=== PATIENT | male | born 1950 | race Caucasian/White ===

== ENCOUNTER 2017-05-15 20:43 | Emergency (ER) | payer OTHER ==
--- NOTE | 2017-05-15 21:42 | EDM.PDOC ---
ED HPI GENERAL MEDICAL PROBLEM - General Chief Complaint: Respiratory Problem Stated Complaint: COUGH WEAKNESS Time Seen by Provider: 05/15/17 21:25 Source of Information: Reports: Patient, Family, Old Records, RN History Limitations: Reports: No Limitations - History of Present Illness INITIAL COMMENTS - FREE TEXT/NARRATIVE: 66 yo male life long smoker, [facility] presents with cough that has been getting more progressively productive. Occasional SOB. No fever. Has had some blood in the emesis at times. Has inhalers that help. Goes to the [facility] and it is hard to get in there. Onset: Gradual Onset Date: 04/17/17 Duration: Week(s):, Getting Worse Location: Reports: Chest Quality: Reports: Other (no pain) Severity: Moderate Improves with: Reports: Rest Worsens with: Reports: Movement (exertion) Context: Reports: Other (life long smoker) Associated Symptoms: Reports: Cough, Shortness of Breath (mild). Denies: Fever/ Chills Treatments [employer] UNDERWRITER: Reports: Other (see below) (none) back Pain Score (Numeric/FACES): 5 - Related Data Allergies Allergy/AdvReac Type Severity Reaction Status Date / Time isosorbide mononitrate Allergy Stomach Verified 05/15/17 21:01 [From Imdur] Ache Home Meds: Home Meds Amiodarone HCl [Pacerone] 1 tab PO DAILY 07/21/15 [History] Aspirin 1 tab PO DAILY 07/21/15 [History] Clopidogrel Bisulfate [Clopidogrel] 1 tab PO BEDTIME 07/21/15 [History] Fish Oil/[place]-3 Fatty Acids [Fish Oil 1,000 MG] 1 tab PO DAILY 07/21/15 [ History] Furosemide 20 mg PO DAILY 07/21/15 [History] Losartan [Cozaar] 1 tab PO BEDTIME 07/21/15 [History] Metoprolol Succinate 100 mg PO BID 07/21/15 [History] Nitroglycerin [Nitrostat] 1 tab SL ASDIRECTED 07/21/15 [History] Spironolactone [Aldactone] 1 tab PO DAILY 07/21/15 [History] atorvaSTATin Calcium [Atorvastatin Calcium] 80 mg PO BEDTIME 07/21/15 [History] Albuterol [IJP: Ventolin HFA] 2 puff INH Q4H PRN 05/15/17 [History] Azithromycin [IJP: Azithromycin] 250 mg PO DAILY #6 tab 05/15/17 [Rx] guaiFENesin [Siltussin SA] 10 ml PO Q6H PRN 05/15/17 [History] Past Medical History HEENT History: Reports: Hard of Hearing Cardiovascular History: Reports: Aneurysm, Angina, Arrhythmia, Automatic Implantable Cardioverter Defibrillators, Bypass, CAD, Heart Failure, High Cholesterol, Hypertension, [place], Pacemaker, Prior Cardiac Arrest, SOB on Exertion , Stents Gastrointestinal History: Reports: Colon Polyp Musculoskeletal History: Reports: Amputation, Back Pain, Chronic, Fracture Hematologic History: Reports: Blood Transfusion(s) Oncologic (Cancer) History: Reports: Other (See Below) Other Oncologic History: skin Cancer - Infectious Disease History Infectious Disease History: Reports: Chicken Pox - Past Surgical History Cardiovascular Surgical History: Reports: AAA Repair, Aneurysm, Coronary Artery Bypass, Coronary Artery Stent, Pacer, Vascular Surgery GI Surgical History: Reports: Colonoscopy, Hernia Repair/Other Musculoskeletal Surgical History: Reports: Amputation, Shoulder Surgery Social & Family History - Tobacco Use Smoking Status *Q: Current Every Day Smoker Years of Tobacco use: 52 Packs/Tins Daily: 0.5 - Caffeine Use Caffeine Use: Reports: Coffee - Recreational Drug Use Recreational Drug Use: No ED ROS GENERAL - Review of Systems Review Of Systems: See Below Constitutional: Reports: No Symptoms HEENT: Reports: No Symptoms Respiratory: Reports: Shortness of Breath (mild), Wheezing (chronic), Cough, Sputum, Hemoptysis Cardiovascular: Reports: No Symptoms GI/Abdominal: Reports: No Symptoms : Reports: No Symptoms Skin: Reports: No Symptoms Neurological: Reports: No Symptoms ED EXAM, GENERAL - Physical Exam Exam: See Below Exam Limited By: No Limitations General Appearance: Alert, WD/WN, No Apparent Distress Eye Exam: Bilateral Eye: Normal Inspection Ears: Normal External Exam, Normal Canal, Hearing Grossly Normal, Normal TMs Ear Exam: Bilateral Ear: Auricle Normal, Canal Normal, TM normal Nose: Normal Inspection, Normal Mucosa, No Blood Throat/Mouth: Normal Inspection, Normal Lips, Normal Oropharynx, Normal Voice, No Airway Compromise Head: Atraumatic, Normocephalic Neck: Normal Inspection, Supple, Non-Tender Respiratory/Chest: No Respiratory Distress, No Accessory Muscle Use, Rhonchi ( scattered), Wheezing (faint). No: Pleural Rub, Accessory Muscle Use, Retractions Cardiovascular: Regular Rate, Rhythm, No Edema GI/Abdominal: Normal Bowel Sounds, Soft, Non-Tender, No Distention Back Exam: Normal Inspection. No: CVA Tenderness (R), CVA Tenderness (L) Extremities: Normal Inspection, Normal Range of Motion, Non-Tender, No Pedal Edema Neurological: Alert, Oriented, CN II-XII Intact, Normal Cognition, No Motor/ Sensory Deficits Psychiatric: Normal Affect, Normal Mood Skin Exam: Warm, Dry, Intact, Normal Color, No Rash Lymphatic: No Adenopathy Course - Vital Signs Last Recorded V/S: Last Vital Signs Temp 36.9 C 05/15/17 21:07 Pulse 60 05/15/17 21:45 Resp 15 05/15/17 22:13 BP 132/68 05/15/17 22:13 Pulse Ox 95 05/15/17 22:13 - Orders/Labs/Meds Orders: Active Orders 24 hr Category Date Time Status Chest 2V [CR] Stat Exams 05/15/17 21:41 Taken CULTURE RESPIRATORY + SMEAR [RM] Stat Lab 05/15/17 21:54 Results Labs: Laboratory Tests 05/15/17 05/15/17 Range/Units 21:35 21:35 WBC 11.0 (4.5-11.0) K/uL RBC 4.92 (4.30-5.90) M/uL Hgb 15.3 H (12.0-15.0) g/dL Hct 44.7 (40.0-54.0) % MCV 91 (80-98) fL MCH 31 (27-31) pg MCHC 34 (32-36) % Plt Count 190 (150-400) K/uL Sodium 137 L (140-148) mmol/L Potassium 3.9 (3.6-5.2) mmol/L Chloride 101 (100-108) mmol/L Carbon Dioxide 24 (21-32) mmol/L Anion Gap 15.9 H (5.0-14.0) mmol/L BUN 25 H (7-18) mg/dL Creatinine 1.1 (0.8-1.3) mg/dL Est Cr Clr Drug Dosing 63.05 mL/min Estimated GFR (MDRD) > 60 (>60) Glucose 121 H (74-106) mg/dL Calcium 9.4 (8.5-10.1) mg/dL Troponin I < 0.017 (0.000-0.056) ng/mL Meds: Medications Discontinued Medications Generic Name Dose Route Start Last Admin Trade Name Anton PRN Reason Stop Dose Admin Azithromycin 500 mg 05/15/17 22:20 05/15/17 22:25 Zithromax PO 05/15/17 22:21 500 mg ONETIME ONE Administration - Radiology Interpretation Free Text/Narrative:: CXR-? posterior infiltrate, circular lesion(? cavitary R mid lung field) Departure - Departure Time of Disposition: 22:27 Disposition: Home, Self-Care 01 Condition: Fair Clinical Impression: Bronchitis - Discharge Information Referrals: Debby Lutz TELEPHONE ORDER SUPERVISOR [Primary Care Provider] - Forms: ED Department Discharge - My Orders Last 24 Hours: My Active Orders 05/15/17 21:41 Chest 2V [CR] Stat 05/15/17 21:54 CULTURE RESPIRATORY + SMEAR [RM] Stat - Assessment/Plan Last 24 Hours: My Active Orders 05/15/17 21:41 Chest 2V [CR] Stat 05/15/17 21:54 CULTURE RESPIRATORY + SMEAR [RM] Stat
[2017-05-15 22:14] VITALS: BP 132/68
[2017-05-15] MEDS ORDERED: Azithromycin 250 MG Tab PO ONE (22:20)
--- NOTE | 2017-05-17 08:53 | CR ---
Chest 2V HISTORY: Productive cough and occasional bloody sputum. COMPARISON: None FINDINGS: Median sternotomy. Left-sided pacemaker. There is a area of mixed density measuring 2.9 cm with central lucency which could represent cavitating lesion infectious or neoplastic in the right up per lobe. The left lung is clear partial obscured left upper lobe from the patient's pacemaker. Mild cardiomegaly. No effusions. Impression: Ill-defined density measuring 2.9 cm right upper lobe with central lucency. Cavitating lesion not exc luded this could be infectious or neoplastic. Would recommend CT scan of the chest after IV contrast for better characterization.
== END 2017-05-15 22:41 | disposition home or self-care (01) ==
LOC: JP.ED 20:43
DX: J40 Bronchitis, not specified as acute or chronic (principal); I11.0 Hypertensive heart disease with heart failure; I50.9 Heart failure, unspecified; F17.210 Nicotine dependence, cigarettes, uncomplicated; I25.10 Atherosclerotic heart disease of native coronary artery without angina pectoris; Z95.1 Presence of aortocoronary bypass graft; Z79.82 Long term (current) use of aspirin; Z79.899 Other long term (current) drug therapy; Z88.8 Allergy status to other drugs, medicaments and biological substances
CPT/HCPCS: 36415; 71020; 80048; 84484; 85027; 87070; 87205; 99284; A9270; 99283

== ENCOUNTER 2020-04-14 05:20 | Emergency (ER) | payer OTHER ==
[2020-04-14 05:47] VITALS: PULSE 60
--- NOTE | 2020-04-14 06:52 | EDM.PDOC ---
<OfficerPasquale - Last Filed: 04/14/20 06:46> ED HPI GENERAL MEDICAL PROBLEM - General Chief Complaint: General Stated Complaint: MEDICAL VIA [facility] Time Seen by Provider: 04/14/20 06:37 Source of Information: Reports: Patient, Family, RN Notes Reviewed History Limitations: Reports: No Limitations - History of Present Illness INITIAL COMMENTS - FREE TEXT/NARRATIVE: 69-year-old gentleman presents emergency department a complaint of weakness, he has a known history of lung cancer recently diagnosed a couple months ago he has not started chemotherapy that is due to begin next week. He also has a known history of congestive heart failure with an ejection fraction around 20%. He has had recent adjustment of medications to try and lower his blood pressure because of the severity of his congestive heart failure carvedilol was the last medication that was added. He states that he notices he gets dizzy whenever he changes positions and he feels very weak to the point where he cannot stand up. This has progressed over the last week. No fevers no nausea vomiting no shortness of breath. Does have an extensive history of coronary artery disease as well as myocardial infarction. - Related Data Allergies Allergy/AdvReac Type Severity Reaction Status Date / Time isosorbide mononitrate Allergy Stomach Verified 04/14/20 05:32 [From Imdur] Ache Home Meds: Home Meds Amiodarone HCl [Pacerone] 100 mg PO DAILY 07/21/15 [History] Aspirin 81 mg PO DAILY 07/21/15 [History] Clopidogrel Bisulfate [Clopidogrel] 75 mg PO BEDTIME 07/21/15 [History] Fish Oil/[place]-3 Fatty Acids [Fish Oil 1,000 MG] 1 tab PO DAILY 07/21/15 [History] Furosemide 20 mg PO DAILY 07/21/15 [History] Losartan [Cozaar] 50 mg PO BEDTIME 07/21/15 [History] Metoprolol Succinate 100 mg PO BID 07/21/15 [History] Nitroglycerin [Nitrostat] 1 tab SL ASDIRECTED 07/21/15 [History] Spironolactone [Aldactone] 1 tab PO DAILY 07/21/15 [History] atorvaSTATin Calcium [Atorvastatin Calcium] 80 mg PO BEDTIME 07/21/15 [History] Albuterol [IJP: Ventolin HFA] 2 puff INH Q6H PRN 05/15/17 [History] guaiFENesin [Siltussin SA] 10 ml PO Q6H PRN 05/15/17 [History] Pantoprazole [ProTONIX] 40 mg PO DAILY 04/14/20 [History] Sod Chlor,Bicarb/Squeez Bottle [Sinus Rinse Starter Kit] 1 pack LUIS ASDIRECTED 04/14/20 [History] Spironolactone [Aldactone] 25 mg PO DAILY 04/14/20 [History] carvediloL [Carvedilol] 25 mg PO BID 04/14/20 [History] Past Medical History HEENT History: Reports: Hard of Hearing Cardiovascular History: Reports: Aneurysm, Angina, Arrhythmia, Automatic Implantable Cardioverter Defibrillators, Bypass, CAD, Heart Failure, High C holesterol, Hypertension, [place], Pacemaker, Prior Cardiac Arrest, SOB on Exertion, Stents Respiratory History: Reports: Other (See Below) Other Respiratory History: lung cancer Gastrointestinal History: Reports: Colon Polyp Musculoskeletal History: Reports: Amputation, Back Pain, Chronic, Fracture Hematologic History: Reports: Blood Transfusion(s) Oncologic (Cancer) History: Reports: Lung, Other (See Below) Other Oncologic History: skin Cancer - Infectious Disease History Infectious Disease History: Reports: Chicken Pox - Past Surgical History Cardiovascular Surgical History: Reports: AAA Repair, Aneurysm, Coronary Artery Bypass, Coronary Artery Stent, Pacer, Vascular Surgery Respiratory Surgical History: Reports: None GI Surgical History: Reports: Colonoscopy, Hernia Repair/Other Musculoskeletal Surgical History: Reports: Amputation, Shoulder Surgery Social & Family History - Tobacco Use Tobacco Use Status *Q: Current Every Day Tobacco User Years of Tobacco use: 55 Packs/Tins Daily: 0.4 - Caffeine Use Caffeine Use: Reports: Coffee - Recreational Drug Use Recreational Drug Use: No ED ROS GENERAL - Review of Systems Review Of Systems: See Below Constitutional: Reports: Weakness HEENT: Reports: No Symptoms Respiratory: Reports: No Symptoms Cardiovascular: Reports: No Symptoms GI/Abdominal: Reports: No Symptoms : Reports: No Symptoms Neurological: Reports: Dizziness ED EXAM, GENERAL - Physical Exam Exam: See Below Exam Limited By: No Limitations General Appearance: Alert, WD/WN, No Apparent Distress Neck: Normal Inspection, Supple, Non-Tender, Full Range of Motion Respiratory/Chest: No Respiratory Distress, Lungs Clear, Normal Breath Sounds, No Accessory Muscle Use, Chest Non-Tender Cardiovascular: Regular Rate, Rhythm, No Murmur GI/Abdominal: Soft, Non-Tender Departure - Departure Disposition: Home, Self-Care 01 Clinical Impression: Syncope, near, Dizziness - Discharge Information Instructions: Dizziness Referrals: PCP,None [Primary Care Provider] - Forms: ED Department Discharge Care Plan Goals: You are likely having some side effects to your medications but they should improve over time. I would recommend you continue your medications and recheck with your regular doctor if not improving satisfactorily. Sepsis Event Note (ED) - Evaluation Sepsis Screening Result: No Definite Risk <Shay Tim - Last Filed: 04/14/20 08:46> Course - Vital Signs Last Recorded V/S: Last Vital Signs Temp 97.4 F 04/14/20 05:35 Pulse 60 04/14/20 07:11 Resp 16 04/14/20 07:11 BP 123/64 04/14/20 07:11 Pulse Ox 95 04/14/20 07:11 - Orders/Labs/Meds Labs: Laboratory Tests 04/14/20 04/14/20 Range/Units 06:56 06:56 WBC 8.8 (4.5-11.0) K/uL RBC 4.31 (4.30-5.90) M/uL Hgb 12.9 D (12.0-15.0) g/dL Hct 39.3 L (40.0-54.0) % MCV 91 (80-98) fL MCH 30 (27-31) pg MCHC 33 (32-36) % Plt Count 175 (150-400) K/uL Neut % (Auto) 66 (36-66) % Lymph % (Auto) 19 L (24-44) % Curry % (Auto) 10 H (2-6) % Eos % (Auto) 5 H (2-4) % Baso % (Auto) 0 (0-1) % Sodium 135 L (140-148) mmol/L Potassium 3.9 (3.6-5.2) mmol/L Chloride 102 (100-108) mmol/L Carbon Dioxide 23 (21-32) mmol/L Anion Gap 13.9 (5.0-14.0) mmol/L BUN 28 H (7-18) mg/dL Creatinine 1.5 H (0.8-1.3) mg/dL Est Cr Clr Drug Dosing 41.35 mL/min Estimated GFR (MDRD) 46 L (>60) Glucose 108 H (74-106) mg/dL Calcium 8.8 (8.5-10.1) mg/dL Total Bilirubin 0.3 (0.2-1.0) mg/dL AST 22 (15-37) U/L ALT 31 (12-78) U/L Alkaline Phosphatase 66 (46-116) U/L Troponin I < 0.017 (0.000-0.056) ng/mL Total Protein 7.9 (6.4-8.2) g/dL Albumin 3.2 L (3.4-5.0) g/dL Globulin 4.7 H (2.3-3.5) g/dL Albumin/Globulin Ratio 0.7 L (1.2-2.2) Meds: Medications Discontinued Medications Generic Name Dose Route Start Last Admin Trade Name Freq PRN Reason Stop Dose Admin Sodium Chloride 1,000 mls @ 500 mls/hr 04/14/20 07:00 04/14/20 07:10 Normal Saline IV 500 mls/hr ASDIRECTED [facility] Administration - Re-Assessments/Exams Free Text/Narrative Re-Assessment/Exam: 04/14/20 07:59 Patient care turned over from Officer pending a fluid bolus. He rested quietly during the fluid placement and stable. He will be discharged and can follow-up with primary care as scheduled. The new prescription of carvedilol is likely contributing to his lightheadedness and dizziness but I think he should persist in taking the medication as this should improve. Departure - Departure Time of Disposition: 08:26 Sepsis Event Note (ED) - Focused Exam Vital Signs: Vital Signs Temp Pulse Resp BP Pulse Ox 04/14/20 07:11 60 16 123/64 95 04/14/20 05:35 97.4 F 60 16 110/75 95
[2020-04-14] MEDS ORDERED: Sodium Chloride 0.9% 1,000 ML IV SCH (07:00)
[2020-04-14 07:12] VITALS: BP 123/64
== END 2020-04-14 08:32 | disposition home or self-care (01) ==
LOC: JP.ED 05:20
DX: R55 Syncope and collapse (principal); R42 Dizziness and giddiness; I25.10 Atherosclerotic heart disease of native coronary artery without angina pectoris; I11.0 Hypertensive heart disease with heart failure; I50.9 Heart failure, unspecified; E78.00 Pure hypercholesterolemia, unspecified; I25.2 Old myocardial infarction; F17.210 Nicotine dependence, cigarettes, uncomplicated; Z95.5 Presence of coronary angioplasty implant and graft; Z79.82 Long term (current) use of aspirin; Z79.02 Long term (current) use of antithrombotics/antiplatelets; Z79.899 Other long term (current) drug therapy; Z88.8 Allergy status to other drugs, medicaments and biological substances
CPT/HCPCS: 36415; 80053; 84484; 85025; 99285; J7030; 99283

== ENCOUNTER 2020-05-04 01:34 | Emergency (ER) | payer OTHER ==
[2020-05-04] MEDS ORDERED: Albuterol/Ipratropium 4 GM Inhalation Spray INH STA (02:29)
[2020-05-04] MEDS ORDERED: Ondansetron 4 MG/2 ML SDV IVPUSH ONE (02:29)
[2020-05-04] MEDS ORDERED: Sodium Chloride 0.9% 10 ML Syringe FLUSH PRN (02:29)
[2020-05-04] MEDS ORDERED: Sodium Chloride 0.9% 1,000 ML IV SCH (02:30)
--- NOTE | 2020-05-04 02:33 | EDM.PDOC ---
ED HPI GENERAL MEDICAL PROBLEM - General Chief Complaint: Respiratory Problem Stated Complaint: THROWING UP,SOB Time Seen by Provider: 05/04/20 02:11 Source of Information: Reports: Patient, Family, RN Notes Reviewed History Limitations: Reports: No Limitations - History of Present Illness INITIAL COMMENTS - FREE TEXT/NARRATIVE: 69-year-old gentleman presents emergency department a complaint of shortness of breath with nausea and vomiting, he has a known history of stage IV non-small cell lung CA recent diagnosis started chemotherapy end of March. He states over the last 24 hours he is gotten progressively more short of breath and then today he started nausea and vomiting. States he has not had any known Covid exposures tries to stay home no fevers does have body aches and feels weak Upper Shoulder Pain Score (Numeric/FACES): 3 - Related Data Allergies Allergy/AdvReac Type Severity Reaction Status Date / Time bee venom protein (honey bee) Allergy Swelling Verified 05/04/20 02:17 isosorbide mononitrate Allergy Stomach Verified 05/04/20 01:49 [From Imdur] Ache rosuvastatin Allergy Cannot Verified 05/04/20 02:17 Remember Home Meds: Home Meds Amiodarone HCl [Pacerone] 200 mg PO DAILY 07/21/15 [History] Aspirin 81 mg PO DAILY 07/21/15 [History] Clopidogrel Bisulfate [Clopidogrel] 75 mg PO BEDTIME 07/21/15 [History] Fish Oil/[place]-3 Fatty Acids [Fish Oil 1,000 MG] 1 tab PO DAILY 07/21/15 [History] Furosemide 20 mg PO DAILY 07/21/15 [History] Losartan [Cozaar] 50 mg PO DAILY 07/21/15 [History] Metoprolol Succinate 100 mg PO BID 07/21/15 [History] Nitroglycerin [Nitrostat] 1 tab SL ASDIRECTED 07/21/15 [History] atorvaSTATin Calcium [Atorvastatin Calcium] 80 mg PO BEDTIME 07/21/15 [History] Albuterol [IJP: Ventolin HFA] 2 puff INH Q6H PRN 05/15/17 [History] guaiFENesin [Siltussin SA] 5 ml PO Q6H PRN 05/15/17 [History] Spironolactone [Aldactone] 25 mg PO DAILY 04/14/20 [History] carvediloL [Carvedilol] 12.5 mg PO BID 04/14/20 [History] Cetirizine [ZyrTEC] 10 mg PO BEDTIME 05/04/20 [History] Omeprazole 20 mg PO BID 05/04/20 [History] Past Medical History HEENT History: Reports: Hard of Hearing, Impaired Vision Cardiovascular History: Reports: Aneurysm, Angina, Arrhythmia, Automatic Implantable Cardioverter Defibrillators, Bypass, CAD, Heart Failure, High Cholesterol, Hypertension, CO, Pacemaker, Prior Cardiac Arrest, SOB on Exertion, Stents Respiratory History: Reports: Other (See Below) Other Respiratory History: lung cancer Gastrointestinal History: Reports: Colon Polyp Musculoskeletal History: Reports: Amputation, Back Pain, Chronic, Fracture Hematologic History: Reports: Blood Transfusion(s) Oncologic (Cancer) History: Reports: Lung, Other (See Below) Other Oncologic History: skin Cancer - Infectious Disease History Infectious Disease History: Reports: Chicken Pox - Past Surgical History Cardiovascular Surgical History: Reports: AAA Repair, Aneurysm, Coronary Artery Bypass, Coronary Artery Stent, Pacer, Vascular Surgery Respiratory Surgical History: Reports: None GI Surgical History: Reports: Colonoscopy, Hernia Repair/Other Musculoskeletal Surgical History: Reports: Amputation, Shoulder Surgery Social & Family History - Tobacco Use Tobacco Use Status *Q: Current Every Day Tobacco User Years of Tobacco use: 50 Packs/Tins Daily: 0.5 Used Tobacco, but Quit: No Second Hand Smoke Exposure: Yes - Caffeine Use Caffeine Use: Reports: Coffee, Tea - Recreational Drug Use Recreational Drug Use: No ED ROS GENERAL - Review of Systems Review Of Systems: See Below Constitutional: Reports: Weakness. Denies: Fever, Chills HEENT: Reports: No Symptoms Respiratory: Reports: Shortness of Breath, Wheezing, Cough Cardiovascular: Reports: Dyspnea on Exertion GI/Abdominal: Reports: Mucous in Stool, Nausea, Vomiting. Denies: Abdominal Pain Musculoskeletal: Reports: Muscle Pain ED EXAM, GENERAL - Physical Exam Exam: See Below Exam Limited By: No Limitations General Appearance: Alert, WD/WN, No Apparent Distress Throat/Mouth: Normal Inspection, Normal Lips, Normal Teeth, Normal Gums, Normal Oropharynx, Normal Voice, No Airway Compromise Neck: Normal Inspection, Supple, Non-Tender, Full Range of Motion Respiratory/Chest: No Respiratory Distress, No Accessory Muscle Use, Decreased Breath Sounds, Wheezing (Expiratory phase) Cardiovascular: Regular Rate, Rhythm, No Murmur GI/Abdominal: Soft, Non-Tender Back Exam: Normal Inspection, Full Range of Motion. No: CVA Tenderness (R), CVA Tenderness (L) Extremities: No Pedal Edema Course - Vital Signs Last Recorded V/S: Last Vital Signs Temp 96.8 F L 05/04/20 03:18 Pulse 65 05/04/20 03:18 Resp 16 05/04/20 03:18 BP 94/46 L 05/04/20 03:18 Pulse Ox 91 L 05/04/20 03:18 - Orders/Labs/Meds Orders: Active Orders 24 hr Category Date Time Status Peripheral IV Care [RC] . DIRECTED Care 05/04/20 02:29 Active RT Post Treatment Assessment [RC] Click to Edit Care 05/04/20 02:30 Active Chest 1V Frontal [CR] Stat Exams 05/04/20 02:20 Taken Sodium Chloride 0.9% [Normal Saline] 1,000 ml Med 05/04/20 02:30 Active IV ASDIRECTED Sodium Chloride 0.9% [Saline Flush] Med 05/04/20 02:29 Active 10 ml FLUSH ASDIRECTED PRN Isolation [COMM] Routine Oth 05/04/20 02:20 Ordered Peripheral IV Insertion Adult [OM.PC] Urgent Oth 05/04/20 02:29 Ordered Medication Orders Sodium Chloride (Normal Saline) 1,000 mls @ 999 mls/hr IV ASDIRECTED MIRIAM Last Admin: 05/04/20 03:12 Dose: 500 mls/hr Documented by: MILLER Sodium Chloride (Saline Flush) 10 ml FLUSH ASDIRECTED PRN PRN Reason: Keep Vein Open Labs: Laboratory Tests 05/04/20 05/04/20 05/04/20 Range/Units 02:30 02:30 02:30 WBC 7.9 (4.5-11.0) K/uL RBC 4.48 (4.30-5.90) M/uL Hgb 13.5 (12.0-15.0) g/dL Hct 40.2 (40.0-54.0) % MCV 90 (80-98) fL MCH 30 (27-31) pg MCHC 34 (32-36) % Plt Count 177 (150-400) K/uL Neut % (Auto) 68 H (36-66) % Lymph % (Auto) 15 L (24-44) % Lucas % (Auto) 13 H (2-6) % Eos % (Auto) 4 (2-4) % Baso % (Auto) 1 (0-1) % Sodium 129 L (140-148) mmol/L Potassium 4.2 (3.6-5.2) mmol/L Chloride 96 L (100-108) mmol/L Carbon Dioxide 19 L (21-32) mmol/L Anion Gap 18.2 H (5.0-14.0) mmol/L BUN 35 H (7-18) mg/dL Creatinine 1.9 H (0.8-1.3) mg/dL Est Cr Clr Drug Dosing 33.82 mL/min Estimated GFR (MDRD) 35 L (>60) Glucose 116 H (74-106) mg/dL Lactic Acid 1.5 (0.4-2.0) mmol/L Calcium 8.6 (8.5-10.1) mg/dL Total Bilirubin 0.5 D (0.2-1.0) mg/dL Direct Bilirubin 0.20 (0.0-0.2) mg/dL Indirect Bilirubin 0.30 AST 44 H D (15-37) U/L ALT 41 (12-78) U/L Alkaline Phosphatase 74 (46-116) U/L Troponin I (0.000-0.056) ng/mL C-Reactive Protein 0.87 H (0.0-0.3) mg/dL Total Protein 8.3 H (6.4-8.2) g/dL Albumin 3.1 L (3.4-5.0) g/dL Globulin 5.2 H (2.3-3.5) g/dL Albumin/Globulin Ratio 0.6 L (1.2-2.2) Procalcitonin ng/mL SARS CoV-2 RNA Rapid VIVIEN 05/04/20 05/04/20 05/04/20 Range/Units 02:30 02:30 02:31 WBC (4.5-11.0) K/uL RBC (4.30-5.90) M/uL Hgb (12.0-15.0) g/dL Hct (40.0-54.0) % MCV (80-98) fL MCH (27-31) pg MCHC (32-36) % Plt Count (150-400) K/uL Neut % (Auto) (36-66) % Lymph % (Auto) (24-44) % Lucas % (Auto) (2-6) % Eos % (Auto) (2-4) % Baso % (Auto) (0-1) % Sodium (140-148) mmol/L Potassium (3.6-5.2) mmol/L Chloride (100-108) mmol/L Carbon Dioxide (21-32) mmol/L Anion Gap (5.0-14.0) mmol/L BUN (7-18) mg/dL Creatinine (0.8-1.3) mg/dL Est Cr Clr Drug Dosing mL/min Estimated GFR (MDRD) (>60) Glucose (74-106) mg/dL Lactic Acid (0.4-2.0) mmol/L Calcium (8.5-10.1) mg/dL Total Bilirubin (0.2-1.0) mg/dL Direct Bilirubin (0.0-0.2) mg/dL Indirect Bilirubin AST (15-37) U/L ALT (12-78) U/L Alkaline Phosphatase (46-116) U/L Troponin I < 0.017 (0.000-0.056) ng/mL C-Reactive Protein (0.0-0.3) mg/dL Total Protein (6.4-8.2) g/dL Albumin (3.4-5.0) g/dL Globulin (2.3-3.5) g/dL Albumin/Globulin Ratio (1.2-2.2) Procalcitonin 0.07 ng/mL SARS CoV-2 RNA Rapid VIVIEN Positive H Meds: Medications Generic Name Dose Route Start Last Admin Trade Name Freq PRN Reason Stop Dose Admin Sodium Chloride 1,000 mls @ 999 mls/hr 05/04/20 02:30 05/04/20 03:12 Normal Saline IV 500 mls/hr ASDIRECTED MIRIAM Administration Sodium Chloride 10 ml 05/04/20 02:29 Saline Flush FLUSH ASDIRECTED PRN Keep Vein Open Discontinued Medications Generic Name Dose Route Start Last Admin Trade Name Freq PRN Reason Stop Dose Admin Albuterol/Ipratropium 1 gm 05/04/20 02:29 05/04/20 03:15 Combivent Respimat INH 05/04/20 02:30 1 gm NOW STA Administration Ondansetron HCl 4 mg 05/04/20 02:29 05/04/20 03:13 Zofran IVPUSH 05/04/20 02:30 4 mg ONETIME ONE Administration Departure - Departure Time of Disposition: 03:50 Disposition: Home, Self-Care 01 Condition: Poor Clinical Impression: COVID-19 Stage IV adenocarcinoma of lung Qualifiers: Laterality: right Qualified Code(s): C34.91 - Malignant neoplasm of unspecified part of right bronchus or lung - Discharge Information Instructions: COVID-19 Referrals: PCP,None [Primary Care Provider] - Forms: ED Department Discharge Additional Instructions: Use your Combivent inhaler as needed for symptomatic relief of your shortness of breath you can take 2 puffs every 4 hours. Use the Zofran as needed for nausea and vomiting symptoms you can take 1 tablet up to 3 times a day, recommend self quarantine, please followup with your primary care provider in 7-10 days if not better, please call return to the emergency department with worsening of symptoms. Sepsis Event Note (ED) - Evaluation Sepsis Screening Result: No Definite Risk - Focused Exam Vital Signs: Vital Signs Temp Pulse Resp BP Pulse Ox 05/04/20 03:18 96.8 F L 65 16 94/46 L 91 L 05/04/20 01:48 96.8 F L 68 22 H 138/58 L 92 L - My Orders Last 24 Hours: My Active Orders 05/04/20 02:20 Chest 1V Frontal [CR] Stat Isolation [COMM] Routine 05/04/20 02:29 Peripheral IV Care [RC] . DIRECTED Sodium Chloride 0.9% [Saline Flush] 10 ml FLUSH ASDIRECTED PRN Peripheral IV Insertion Adult [OM.PC] Urgent 05/04/20 02:30 RT Post Treatment Assessment [RC] Click to Edit Sodium Chloride 0.9% [Normal Saline] 1,000 ml IV ASDIRECTED - Assessment/Plan Last 24 Hours: My Active Orders 05/04/20 02:20 Chest 1V Frontal [CR] Stat Isolation [COMM] Routine 05/04/20 02:29 Peripheral IV Care [RC] . DIRECTED Sodium Chloride 0.9% [Saline Flush] 10 ml FLUSH ASDIRECTED PRN Peripheral IV Insertion Adult [OM.PC] Urgent 05/04/20 02:30 RT Post Treatment Assessment [RC] Click to Edit Sodium Chloride 0.9% [Normal Saline] 1,000 ml IV ASDIRECTED Plan: Assessment Acuity = acute Site and laterality = viral syndrome Etiology = positive for Covid Manifestations = dyspnea nausea vomiting Location of injury = Home Lab values = CBC unremarkable sodium low at 129 consistent hyponatremia creatinine elevated 1.9 consistent with acute renal failure stage G4 troponin was negative lactic acid normal 1.8 procalcitonin normal at 0.07+ for Covid 19, chest x-ray I did review films myself I cannot appreciate any acute process, the official read from radiology is pending Plan He was given 1 L fluids in the emergency department, he had good improvement with the Combivent inhaler for his breathing status [place] helped with the nausea symptoms he was informed of his COVID-19 status is well he will return to home and self quarantine This note was dictated using [employer] voice recognition software please call with any questions on syntax or grammar.
[2020-05-04 03:21] VITALS: BP 94/46; PULSE 65
--- NOTE | 2020-05-04 09:23 | CR ---
CHEST: Portable 05/04/2020 at 3:00 AM CLINICAL HISTORY:Respiratory failure COMPARISON:None available FINDINGS: Heart size is and pulmonary vascular are normal. Patient has a permanent cardiac pacer/defibrillator. There has been previous sternotomy. There is a patchy density in the right upper lobe suspect for pneumonic infiltrate. There is some minimal patchiness in both lung bases which may be chronic. Impression: Right upper lobe pneumonic infiltrate superimposed over some chronic lung changes
== END 2020-05-04 04:30 | disposition home or self-care (01) ==
LOC: JP.ED 01:34
DX: U07.1 COVID-19 (principal); C34.91 Malignant neoplasm of unspecified part of right bronchus or lung; E78.00 Pure hypercholesterolemia, unspecified; I25.2 Old myocardial infarction; I11.0 Hypertensive heart disease with heart failure; I50.9 Heart failure, unspecified; I25.10 Atherosclerotic heart disease of native coronary artery without angina pectoris; F17.210 Nicotine dependence, cigarettes, uncomplicated; Z91.030 Bee allergy status; Z88.8 Allergy status to other drugs, medicaments and biological substances; Z95.1 Presence of aortocoronary bypass graft; Z79.82 Long term (current) use of aspirin; Z79.02 Long term (current) use of antithrombotics/antiplatelets; Z79.899 Other long term (current) drug therapy
CPT/HCPCS: 36415; 71045; 80048; 80076; 83605; 84145; 84484; 85025; 86140; 87635; 87804; 94640; 96374; 99285; A9270; J2405; J7030; U0002